=== PATIENT | female | born 1950 | race Two or more races ===

== ENCOUNTER 2018-03-09 06:50 | Day surgery (SDC) | payer OTHER ==
[~2018-03-09 06:50] MED LIST: AMBIEN10 MG PO; ATIVAN1 M1 PO; GLUMETZA1000 MG PO; HYDROCHLOROTHIA25 MG PO; OMEPRAZOLE40 MG PO; PROZAC40 MG PO; SIMVASTATIN40 MG PO
[2018-04-19] MEDS ORDERED: ATORVASTATIN CA20 MG PO (11:12)
[2018-04-19] MEDS ORDERED: [UNRECOGNIZED DRUG - OTHER] PO (11:12)
[2018-04-19] MEDS ORDERED: SARAFEM20 M1 PO (11:13)
[2018-04-19] MEDS ORDERED: GABAPENTIN800 MG PO (11:13)
== END 2018-03-09 13:20 | disposition home or self-care (01) ==
LOC: AMB-ENDOS 06:50
DX: K57.30 Diverticulosis of large intestine without perforation or abscess without bleeding (principal); K64.1 Second degree hemorrhoids; K92.1 Melena; Z12.11 Encounter for screening for malignant neoplasm of colon

== ENCOUNTER → 2018-04-25 | Day surgery (SDC) | payer OTHER ==
[~2018-04-25] MED LIST changes: +ATORVASTATIN CA20 MG PO; +GABAPENTIN800 MG PO; +SARAFEM20 M1 PO; +[UNRECOGNIZED DRUG - OTHER] PO
== END | disposition home or self-care (01) ==
LOC: ADM 04-19 08:15 → CIR.AMB 05:20
DX: N81.6 Rectocele (principal)

== ENCOUNTER 2018-09-28 06:05 | Day surgery (SDC) | payer OTHER | END 2018-09-28 13:10 | disposition home or self-care (01) | LOC: AMB-ENDOS 06:05 | DX: D13.1 Benign neoplasm of stomach (principal); K64.1 Second degree hemorrhoids ==